=== PATIENT | male | born 1985 | race Caucasian/White ===

== ENCOUNTER 2023-12-29 16:39 | Emergency (ER) | payer SELFPAY ==
[~2023-12-29] VITALS: Ht 170.2 cm; Wt 82.0 kg
[2023-12-29 18:17] LABS: BASO % 0.4 % (0.0-1.0); EOS % 0.4 % (0.0-3.0); HEMATOCRIT 42.8 % (42.0-52.0); HEMOGLOBIN 13.3 g/dl (13.5-17.5); LYMPH # 1.3 10^3/uL (1.5-5.0); LYMPH % 13.8 % (24.0-44.0); MEAN CORPUSCULAR HEMOGLOBIN 25.9 pg (27.0-33.0); MEAN CORPUSCULAR HGB CONC 31.1 g/dl (32.0-36.5); MEAN CORPUSCULAR VOLUME 83.3 fl (80.0-96.0); MONO # 0.7 10^3/uL (0.0-0.8); MONO % 7.7 % (2.0-8.0); NEUTROPHILS # 7.1 10^3/uL (1.5-8.5); NEUTROPHILS % 77.4 % (36.0-66.0); PLATELET COUNT, AUTOMATED 354 10^3/uL (150-450); RED BLOOD COUNT 5.14 10^6/uL (4.30-6.10); WHITE BLOOD COUNT 9.2 10^3/uL (4.0-10.0)
[2023-12-29 18:25] LABS: AMORPHOUS SEDIMENT SMALL (NEGATIVE); APPEARANCE, URINE CLEAR (CLEAR); BACTERIA, URINE AUTO NEGATIVE (NEGATIVE); BILIRUBIN, URINE AUTO NEGATIVE (NEGATIVE); BLOOD, URINE BLOOD 1+ (NEGATIVE); COLOR, URINE STRAW (YELLOW); GLUCOSE, URINE (UA) AUTO NEGATIVE (NEGATIVE); KETONE, URINE AUTO NEGATIVE (NEGATIVE); LEUKOCYTE ESTERASE, URINE AUTO NEGATIVE (NEGATIVE); NITRITE, URINE AUTO NEGATIVE (NEGATIVE); PROTEIN, URINE AUTO NEGATIVE (NEGATIVE); RBC, URINE AUTO 5 /HPF (0-3); SQUAMOUS EPITHELIAL CELL UR AU 0 /HPF (0-6); UROBILINOGEN, URINE AUTO 0.2 mg/dL (0.0-2.0); WBC, URINE AUTO 0 /HPF (0-3)
[2023-12-29 19:12] LABS: ALBUMIN 3.9 G/DL (3.2-5.2); ALKALINE PHOSPHATASE 80 U/L (46-116); ALT/SGPT 80 U/L (7.0-40); AST/SGOT 36 U/L (<34); BILIRUBIN,DIRECT 0.2 MG/DL (<0.4); BILIRUBIN,TOTAL 0.8 MG/DL (0.3-1.2); BLOOD UREA NITROGEN 14 MG/DL (9-23); CALCIUM LEVEL 10.1 MG/DL (8.5-10.1); CARBON DIOXIDE LEVEL 29 MMOL/L (20-31); CHLORIDE LEVEL 103 MMOL/L (98-107); CREATININE FOR GFR 0.81 MG/DL (0.70-1.30); GLOMERULAR FILTRATION RATE > 60.0 (>60); GLUCOSE, FASTING 144 MG/DL (60-100); SODIUM LEVEL 138 MMOL/L (136-145); TOTAL PROTEIN 8.1 G/DL (5.7-8.2)
[2023-12-29 19:56] LABS: CK-MB VALUE MASS < 1.0 NG/ML (<3.6)
[2023-12-29 19:58] LABS: CPK CREATINE PHOSPHOKINASE 112 U/L (46-171); MB/CK RELATIVE INDEX 0.89 (< OR =4)
[2023-12-29] MEDS: hydrALAZINE 20MG/ML 1ML VIAL IV STA (20:50)
[2023-12-29] MEDS: amLODIPine 5 MG TAB PO ONE ×2 (20:50→22:07)
[2023-12-29 22:07] VITALS: BP 183/100
[2023-12-29 23:00] VITALS: TEMP 98
[2023-12-29] MEDS: ACETAMINOPHEN TAB 650MG DOSE (2X325MG) PO ONE (23:04)
[2023-12-29 23:30] VITALS: BP 178/89; O2SAT 98
[2023-12-29] MEDS ORDERED: DICL20GE TP (23:37)
[2023-12-29] MEDS ORDERED: AMLO1TAB25 PO (23:37)
== END 2023-12-29 23:54 | disposition home or self-care (01) ==
LOC: M ED 16:39
DX: I10 Essential (primary) hypertension (principal); M72.2 Plantar fascial fibromatosis; R94.31 Abnormal electrocardiogram [ECG] [EKG]; F10.10 Alcohol abuse, uncomplicated; Z91.018 Allergy to other foods; Z79.899 Other long term (current) drug therapy
CPT/HCPCS: 80053; 81001; 82248; 82550; 82553; 84484; 85025; 93005; 96374; 99284; J0360